=== PATIENT | female | born 1990 | race African-American/Black ===

== ENCOUNTER 2023-10-02 16:07 | Day surgery (SDC) | payer OTHER, SELFPAY ==
[2023-10-02] VITALS (13 sets, daily range): BP systolic 90–174; BP diastolic 59–107; BMI 33.6; BMI 34.5
[2023-10-02 11:39] LABS: % Basophils 0.5 % (0-2); % Immature Granulocytes 0.3 % (0-0.5); % Lymphocytes 24.2 % (20.5-51.1); % Monocytes 7.1 % (1.7-9.3); % Neutrophils 66.9 % (42.2-75.2); Absolute Eosinophils 0.1 10^3/uL (0-0.7); Absolute Lymphocytes 1.5 10^3/uL (1.2-3.4); Absolute Monocytes 0.4 10^3/uL (0.1-0.6); Absolute Neutrophils 4.2 10^3/uL (1.4-6.5); Hematocrit 39.7 % (37.0-47.0); Hemoglobin 13.3 g/dL (12.0-16.0); Mean Corp Hgb Conc. 33.5 g/dL (33.0-37.0); Mean Corpuscular Hgb 26.7 pg (27.0-31.0); Mean Corpuscular Volume 79.7 fL (81.0-99.0); Nucleated Red Blood Cells % 0 %; Platelet Count 340 10^3/uL (130-400); Red Blood Cell Count 4.98 10^6/uL (4.20-5.40); Red Cell Dist. Width 14.4 % (11.5-14.5); White Blood Cell Count 6.2 10^3/uL (4.8-10.8)
[2023-10-02 11:57] LABS: HCG, Serum Qualitative Screen Negative
[2023-10-02 12:06] LABS: ALT (SGPT) 66 U/L (0-35); AST (SGOT) 50 U/L (14-36); Albumin 4.7 g/dl (3.5-5.0); Alkaline Phosphatase 199 U/L (38-126); Blood Urea Nitrogen 15 mg/dl (7-17); Carbon Dioxide 21 mmol/L (22-30); Chloride 103 mmol/L (98-107); Glucose 90 mg/dl (70-99); Lipase 68 U/L (23-300); Potassium 3.5 mmol/L (3.5-5.1); Sodium 140 mmol/L (135-145); Total Bilirubin 1.7 mg/dl (0.2-1.3); Total Protein 7.5 g/dl (6.3-8.2); eGFR > 60.00
--- NOTE | 2023-10-02 13:22 | ED.GENMED ---
History of Present Illness
<Maddy Mari PA-C - Last Filed: 10/02/23 18:26>
General
Chief Complaint: Abdominal Pain
Source: patient
Exam Limitations: none
Time Seen by Provider: 10/02/23 13:05
Nursing documentation reviewed up to this point in time: agreed with
Travel History
Have you had any contact with someone who has COVID-19?: No
Do you have any symptoms of coronavirus? Fever > 100 degrees, chills, cough, shortness of breath, sore throat, loss of taste or smell, muscle aches, or headache?: No
History of Present Illness
History of Present Illness:
Patient is a 33-year-old female with history gallstones presenting for evaluation of right upper quadrant abdominal pain with associated nausea and vomiting. Symptoms initially started Sunday night 7 PM and have been constant since. She
describes a constant pain in her right upper abdomen with intermittent sharp pains wrapping around to her mid back. She does report some radiation to her right shoulder. Pain is somewhat worse with deep inspiration. Patient does report
intermittent nausea and a few episodes of vomiting. She has had very little appetite. Prior to pain onset Sunday night she did eat a [id number] from [employer]. Patient was seen in our emergency department about 10 months ago where she had an
ultrasound that showed gallstones and gall sludge. She states she would intermittently get discomfort in the right upper abdomen which always quickly.
Patient denies any fever, chills, chest pain, urinary symptoms.
Past History
<Maddy Mari PA-C - Last Filed: 10/02/23 18:26>
Past History
ED Past Medical History: Asthma and Psychiatric
ED Past Surgical History: Gynecological
Social History
Tobacco: Non-smoker
Review of Systems
<Maddy Mari PA-C - Last Filed: 10/02/23 18:26>
Review of Systems
Allergies reviewed?: Yes
All Other Systems: ROS reviewed and negative except as documented in HPI and ROS
Phy Exam
<Maddy Mari PA-C - Last Filed: 10/02/23 18:26>
Physical Exam
Physical Exam:
Vitals: Patient's vital signs are stable. Afebrile
General: Patient is well appearing, no acute distress. Nontoxic appearing
Skin: Warm and dry, no rashes or lesions
Head: Normocephalic, atraumatic
Eyes: Sclera nonicteric. EOMs intact. No nystagmus.
Throat: Protecting airway
Neck: Normal ROM, no cervical spine tenderness, no meningismus. Trachea midline
Cardiac: Regular rate and rhythm, no murmurs. No anterior chest wall tenderness
Pulm: Normal respiratory effort, no wheezes, rales, rhonchi heard on exam.
Abdomen: Abdomen soft. Moderately tender right upper quadrant. Positive Guo sign. No rebound tenderness or guarding. No tenderness at McBurney's point. Nondistended
Extremities: No evidence of cyanosis or edema. Good distal pulses
Neuro: AAOx3. CN II-XII intact. No focal neurologic deficits.
Psychiatric: Normal affect.
Course
<Maddy Mari PA-C - Last Filed: 10/02/23 18:26>
Orders/Labs/Results
Orders:
Orders
10/02/23 11:23
Test Result ONCE
10/02/23 11:28
Complete Blood Count/With Diff Urgent
Comprehensive Metabolic Panel Urgent
HCG, Serum Qualitative Screen Urgent
Lipase Urgent
10/02/23 13:23
0.9% Sodium Chloride 1000 ml [Nss] 1,000 ml IV BOLUS
Ketorolac [Toradol] 15 mg IV NOW STA
US Abdomen Complete/Upper Urgent
Comment: hx gallstones
Reason For Exam: RUQ abdominal pain, nausea/vomiting
10/02/23 13:24
Electrocardiogram (*1) Urgent
Reason for Study: Abdominal Pain
EKG- Treatment ONCE
10/02/23 13:58
Troponin I Urgent
10/02/23 14:52
HYDROmorphone [Dilaudid] 0.5 mg IV NOW STA
Ondansetron Injectable [Zofran] 4 mg IV NOW STA
Piperacillin/Tazo 3.375 Gram [Zosyn] 3.375 gram in 50 ml IV NOW
10/02/23 15:19
Consult Surgery [SURGICAL CONSULT] Urgent
Consulting Provider: Arvaind Perdue
Was physician already notified: Yes
10/02/23 15:45
HYDROmorphone [Dilaudid] 0.25 mg IV PACU-Q5MPRN PRN
HYDROmorphone [Dilaudid] 0.5 mg IV PACU-Q5MPRN PRN
Meperidine [Demerol] 12.5 mg IV PACU-Q5MPRN PRN
Normosol (Mult Electrolytes) [Normosol-R] 1,000 ml IV PER PROTOCOL
Ondansetron Injectable [Zofran] 4 mg IV PACU-ONCEPRN PRN
Prochlorperazine [Compazine] 5 mg IV PACU-ONCEPRN PRN
Notify MD As Directed
Notify physician if: for SDS patients with known or suspected sleep obstructive sleep apnea, monitor in the
PACU.
Notify MD for any apneic/desaturation episodes
O2 Therapy [RESP] Urgent
Titrate/Wean O2 to maintain O2 sat greater than (%): 92
Special Instructions: -Provide supplemental oxygen to achieve O2 sat of 92% or greater.
-After 15 min, may wean O2 and discontinue if patient is able to maintain O2 sat of 92%
or greater during recovery period.
If patient is a discharge home, without oxygen therapy, notify anestheiologist if
unable to maintain O2 SAT of 92% or greater on room air for MD clearance.
10/02/23 15:54
Fentanyl Citrate/Pf [Sublimaze] 100 mcg .ROUTE .STK-MED ONE
Midazolam HCl [Versed] 2 mg .ROUTE .STK-MED ONE
10/02/23 15:55
Lidocaine HCl/Pf [Xylocaine-Mpf 1% Vial] 50 mg .ROUTE .STK-MED ONE
Propofol [Diprivan] 20 ml .ROUTE .STK-MED
Rocuronium [place] [Rocuronium] 50 mg .ROUTE .STK-MED ONE
10/02/23 15:56
Ondansetron Injectable [Zofran] 4 mg .ROUTE .STK-MED ONE
10/02/23 16:11
Bupivacaine Mpf 0.25% [Sensorcaine-Mpf 0.25% Vial] 30 ml .ROUTE .STK-MED ONE
10/02/23 16:20
Admit/Transfer Patient As Directed
Co-Sign Provider:
Level of Care: Inpatient admission
Assign to:: Medical/Surgical
Physician / Group: cherelle
Diagnosis: acute cholecystitis
Reason for Hospitalization: acute cholecystitis
Expected length of stay greater than two midnights?: Yes
ELOS- Estimated Length of Stay in days: 2
I certify the patient meets the requirements for IP care: Yes
Code Status As Directed
Resuscitation Status: Full Code
10/02/23 16:22
Iohexol [Omnipaque] 50 ml .ROUTE .STK-MED ONE
10/02/23 16:50
Glycopyrrolate [Robinul] 0.2 mg .ROUTE .STK-MED ONE
10/02/23 16:57
Fentanyl Citrate/Pf [Sublimaze] 100 mcg .ROUTE .STK-MED ONE
Propofol [Diprivan] 20 ml .ROUTE .STK-MED
10/02/23 17:01
Labetalol HCl [Trandate] 20 mg .ROUTE .STK-MED ONE
10/02/23 17:11
OR Pathology Routine
Pre-Operative Diagnosis: ACUTE CHOLECYSTECTOMY
Post-Operative Diagnosis: SAME
Operative Procedure: LAP CY
Surgeon: GERARDO
Circulating Nurse: SUMAYA
Specimen Type: GALLBLADDER
10/02/23 17:25
Glucagon [GlucaGen] 1 mg .ROUTE .STK-MED ONE
Abnormal Lab Results
10/02/23
11:28
MCV 79.7 L fL
(81.0-99.0)
MCH 26.7 L pg
(27.0-31.0)
Carbon Dioxide 21 L mmol/L
(22-30)
Total Bilirubin 1.7 H mg/dl
(0.2-1.3)
AST 50 H U/L
(14-36)
ALT 66 H U/L
(0-35)
Alkaline Phosphatase 199 H U/L
(38-126)
10/02/23 11:28
10/02/23 11:28
Vital Signs
Initial and Last Documented VS:
Initial Vital Signs
Temp Pulse Resp BP Pulse Ox
98.9 F 86 16 171/107 99
10/02/23 11:21 10/02/23 11:21 10/02/23 11:21 10/02/23 11:21 10/02/23 11:21
Last Documented Vital Signs
Temp Pulse Resp BP Pulse Ox
98.5 F 82 16 156/98 98
10/02/23 15:21 10/02/23 15:21 10/02/23 15:21 10/02/23 15:21 10/02/23 15:21
<Jigar Ross MD - Last Filed: 10/02/23 13:46>
Orders/Labs/Results
Orders:
Orders
10/02/23 11:23
Test Result ONCE
10/02/23 11:28
Complete Blood Count/With Diff Urgent
Comprehensive Metabolic Panel Urgent
HCG, Serum Qualitative Screen Urgent
Lipase Urgent
10/02/23 13:23
0.9% Sodium Chloride 1000 ml [Nss] 1,000 ml IV BOLUS
Ketorolac [Toradol] 15 mg IV NOW STA
US Abdomen Complete/Upper Urgent
Comment: hx gallstones
Reason For Exam: RUQ abdominal pain, nausea/vomiting
10/02/23 13:24
Electrocardiogram (*1) Urgent
Reason for Study: Abdominal Pain
EKG- Treatment ONCE
10/02/23 13:58
Troponin I Urgent
10/02/23 14:52
HYDROmorphone [Dilaudid] 0.5 mg IV NOW STA
Ondansetron Injectable [Zofran] 4 mg IV NOW STA
Piperacillin/Tazo 3.375 Gram [Zosyn] 3.375 gram in 50 ml IV NOW
10/02/23 15:19
Consult Surgery [SURGICAL CONSULT] Urgent
Consulting Provider: Aravind Perdue
Was physician already notified: Yes
10/02/23 15:45
HYDROmorphone [Dilaudid] 0.25 mg IV PACU-Q5MPRN PRN
HYDROmorphone [Dilaudid] 0.5 mg IV PACU-Q5MPRN PRN
Meperidine [Demerol] 12.5 mg IV PACU-Q5MPRN PRN
Normosol (Mult Electrolytes) [Normosol-R] 1,000 ml IV PER PROTOCOL
Ondansetron Injectable [Zofran] 4 mg IV PACU-ONCEPRN PRN
Prochlorperazine [Compazine] 5 mg IV PACU-ONCEPRN PRN
Notify MD As Directed
Notify physician if: for SDS patients with known or suspected sleep obstructive sleep apnea, monitor in the
PACU.
Notify MD for any apneic/desaturation episodes
O2 Therapy [RESP] Urgent
Titrate/Wean O2 to maintain O2 sat greater than (%): 92
Special Instructions: -Provide supplemental oxygen to achieve O2 sat of 92% or greater.
-After 15 min, may wean O2 and discontinue if patient is able to maintain O2 sat of 92%
or greater during recovery period.
If patient is a discharge home, without oxygen therapy, notify anestheiologist if
unable to maintain O2 SAT of 92% or greater on room air for MD clearance.
10/02/23 15:54
Fentanyl Citrate/Pf [Sublimaze] 100 mcg .ROUTE .STK-MED ONE
Midazolam HCl [Versed] 2 mg .ROUTE .STK-MED ONE
10/02/23 15:55
Lidocaine HCl/Pf [Xylocaine-Mpf 1% Vial] 50 mg .ROUTE .STK-MED ONE
Propofol [Diprivan] 20 ml .ROUTE .STK-MED
Rocuronium [place] [Rocuronium] 50 mg .ROUTE .STK-MED ONE
10/02/23 15:56
Ondansetron Injectable [Zofran] 4 mg .ROUTE .STK-MED ONE
10/02/23 16:11
Bupivacaine Mpf 0.25% [Sensorcaine-Mpf 0.25% Vial] 30 ml .ROUTE .STK-MED ONE
10/02/23 16:20
Admit/Transfer Patient As Directed
Co-Sign Provider:
Level of Care: Inpatient admission
Assign to:: Medical/Surgical
Physician / Group: cherelle
Diagnosis: acute cholecystitis
Reason for Hospitalization: acute cholecystitis
Expected length of stay greater than two midnights?: Yes
ELOS- Estimated Length of Stay in days: 2
I certify the patient meets the requirements for IP care: Yes
Code Status As Directed
Resuscitation Status: Full Code
10/02/23 16:22
Iohexol [Omnipaque] 50 ml .ROUTE .STK-MED ONE
10/02/23 16:50
Glycopyrrolate [Robinul] 0.2 mg .ROUTE .STK-MED ONE
10/02/23 16:57
Fentanyl Citrate/Pf [Sublimaze] 100 mcg .ROUTE .STK-MED ONE
Propofol [Diprivan] 20 ml .ROUTE .STK-MED
10/02/23 17:01
Labetalol HCl [Trandate] 20 mg .ROUTE .STK-MED ONE
10/02/23 17:11
OR Pathology Routine
Pre-Operative Diagnosis: ACUTE CHOLECYSTECTOMY
Post-Operative Diagnosis: SAME
Operative Procedure: LAP CY
Surgeon: GERARDO
Circulating Nurse: SUMAYA
Specimen Type: GALLBLADDER
10/02/23 17:25
Glucagon [GlucaGen] 1 mg .ROUTE .STK-MED ONE
Abnormal Lab Results
10/02/23
11:28
MCV 79.7 L fL
(81.0-99.0)
MCH 26.7 L pg
(27.0-31.0)
Carbon Dioxide 21 L mmol/L
(22-30)
Total Bilirubin 1.7 H mg/dl
(0.2-1.3)
AST 50 H U/L
(14-36)
ALT 66 H U/L
(0-35)
Alkaline Phosphatase 199 H U/L
(38-126)
10/02/23 11:28
10/02/23 11:28
Vital Signs
Initial and Last Documented VS:
Initial Vital Signs
Temp Pulse Resp BP Pulse Ox
98.9 F 86 16 171/107 99
10/02/23 11:21 10/02/23 11:21 10/02/23 11:21 10/02/23 11:21 10/02/23 11:21
Last Documented Vital Signs
Temp Pulse Resp BP Pulse Ox
98.5 F 82 16 156/98 98
10/02/23 15:21 10/02/23 15:21 10/02/23 15:21 10/02/23 15:21 10/02/23 15:21
<Maddy Mari PA-C - Last Filed: 10/02/23 18:26>
MDM/Problems Addressed
Differential Diagnosis Includes:
Not limited to: Biliary colic, cholecystitis, choledocholithiasis, cholangitis, pancreatitis, appendicitis, muscle strain, doubt PE or ACS
MDM/Problems Addressed:
33-year-old female with known history of gallstones presenting for evaluation of right upper quadrant pain that has been constant over the past 3 days. Some nausea and vomiting. No fevers or chills. Patient is hypertensive, otherwise vital signs
are stable. She is afebrile. Exam as above. She is moderately tender in right upper quadrant with a positive Guo sign. Abdomen is soft, nondistended. No tenderness at McBurney's point. With known history of gallstones�symptoms very
suspicious for biliary disease. Labs obtained in triage noted. White count is normal at 6.2. She does have an elevation in her bilirubin to 1.7 with some mild elevations of AST, ALT, alkaline phosphatase. Will check ultrasound of abdomen. EKG
obtained which showed some nonspecific ST changes will get troponin for completeness although seriously doubt cardiac etiology. IV fluids, Toradol for pain. Patient declines Zofran at this time.
Ultrasound shows evidence of acute cholecystitis with some mild dilation of CBD. discussed with general surgery who evaluated patient at bedside. Plan for OR tonight for cholecystectomy. Started patient on Zosyn, Dilaudid for pain. Discussed
with patient. All questions answered. Patient admitted to hospitalist service given potential need for ERCP. Hospitalist aware.
Chronic conditions affecting care:
History gallstones
Acute Exacerbation and/or Progression of Chronic Illness:
Acute cholecystitis
<Maddy Mari PA-C - Last Filed: 10/02/23 18:26>
*Radiology
Radiology exam reviewed: preliminary read by ED provider and radiology read reviewed
*Pulse Oximetry
Patient hypoxic: no
*EKG
Interpreted by ED Provider?: Yes
EKG Intrepretation Date: 10/02/23
Interpretation: abnormal
Comparison EKG: no comparison EKG present
Heart Rate: 108
Rate: tachycardiac
Rhythm: sinus
Interval: normal interval
Ischemia: non-specific ST changes
*E Commerce Solution Architect Interpretation
Rate: E Commerce Solution Architect- N/A
*Critical Care Note
Total Time (30-74mins, 75-104mins- exclusive of procedures): Not Applicable
Data Reviewed
Review of Other/Old Records Reveals: Labs and Radiology Studies
Source: previous hospital records
<Maddy Mari PA-C - Last Filed: 10/02/23 18:26>
Patient Management
Discussion with other providers: Merchandise Processor (General surgery)
ED Attending Note
<Maddy Mari PA-C - Last Filed: 10/02/23 18:26>
-
Portions of this chart may have been created with voice recognition software.� Occasional wrong word or��sound alike� substitutions may have occurred due to the inherent limitations of voice recognition software.
<Jigar Ross MD - Last Filed: 10/02/23 13:46>
ED Attending Note
Patient seen and examined by attending physician: Yes
I performed the substantive portion of visit, reviewed & personally made and approve the management plan that is documented in note by myself or RK.: Yes
ED Attending Note:
33-year-old female complaining of right upper quadrant pain with some radiation to the back for 3 days. Relatively constant. Some nausea or vomiting. No fever. History of same intermittently for the last 8 months. Known gallstones.
On exam patient is nontoxic in no distress. Mild tenderness right upper quadrant. No rebound or guarding no mass or hernia. She is in no respiratory distress. She is warm and dry and perfusing well.
Known gallstones by previous ultrasound. Highly doubt cardiac. EKG has nonspecific changes however she did have many of these before. Troponin will be done for completeness. Ultrasound pending. LFTs are elevated mildly. Very suspicious of
biliary disease.
Discharge Plan
Departure
Patient Disposition: Admit
Date of Disposition: 10/02/23
Time of Disposition: 16:01
Presentation/result/management discussed w/ accepting MD/DO: Hospitalist
Condition: Good
Discharge Problem:
Acute cholecystitis
Interventions
Interventions:
*Risk Screen - Suicide Last Done: 10/02/23 13:35
*General Assessment Last Done: 10/02/23 13:35
*Neglect/Abuse Screening Last Done: 10/02/23 13:35
ED- Fall Risk Assessment Last Done: 10/02/23 13:35
*ED COVID-19 Vaccine History Last Done: 10/02/23 11:21
*Nursing Disposition Last Done: 10/02/23 16:13
TS-Kgxrzz-Gdjlfcbvhe Assessment Last Done: 10/02/23 13:35
Discharge Date and Time
Discharge Date/Time: 10/02/23 16:19
[2023-10-02] MEDS: NSS 1000 IV ×2 (13:38→20:51)
[2023-10-02] MEDS: TORADOL 15 MG IV (13:38)
[2023-10-02 14:41] LABS: Troponin I 0.013 ng/ml
[2023-10-02] MEDS: ZOSYN 50 IV ×2 (14:59→20:59)
[2023-10-02] MEDS: ZOFRAN 4 MG IV ×2 (14:59→22:23)
[2023-10-02] MEDS: DILAUDID 0.5 MG IV ×5 (14:59→20:52)
--- NOTE | 2023-10-02 15:34 | CON.GS ---
Medical History
-
Chief Complaint: Abdominal pain
History of Present Illness:
Patient is a 33 yo F with a PMH of obesity, anxiety, HTN, asthma, and known cholelithiasis. Ms. Weinberg presents to the ER with approximately 3 days of RUQ abdominal pain. She states that her symptoms began on Sunday evening after having a fish
fillet at [employer] and some [employer]. She reports a intense sharp pain in her epigastrium and RUQ radiating to her back. Associated nausea and self-induced vomiting. No fevers or chills. She denies any jaundice, pale stools, or tea colored
urine. She has had prior attacks most recently 2 months ago, reporting approximately 7 more mild episodes of discomfort. She has been previously told that she has gallstones.
Of note, she has a reported history of a heart murmur. She was previously seen by Dr. Lyles from cardiology on 03/01/2023. She had a TTE in 04/2023 which was unremarkable.
Past Medical History
Past Medical History: HTN, Psychiatric (Anxiety) and Other (Obesity)
Past Surgical History: None
Social History
Tobacco: Non-Smoker
Alcohol: Occasional
Drug: Marijuana (Occasional)
Living: With Family
Employment: Not Employed
Family History
Family History: Reviewed & Noncontributory
Allergies / Home Medications
Allergy/AdvReac Type Severity Reaction Status Date / Time
No Known Allergies Allergy Verified 10/02/23 11:23
�Medication �Instructions �Recorded �Confirmed �Type
No Meds [No Current Medications] 10/02/23 10/02/23 History
Review of Systems
-
A 10 point review of systems was completed, and was negative except as per HPI.
Physical Exam
Vital Signs
Temp Pulse Resp BP Pulse Ox
98.5 F 82 16 156/98 98
10/02/23 15:21 10/02/23 15:21 10/02/23 15:21 10/02/23 15:21 10/02/23 15:21
10/01/23 10/02/23 10/03/23
06:59 06:59 06:59
Actual Weight 109.1 kg
Body Mass Index (BMI) 33.6
Lab Results
10/02/23 11:28
10/02/23 11:28
WBC 6.2 10^3/uL (4.8-10.8) 10/02/23 11:28
Hgb 13.3 g/dL (12.0-16.0) 10/02/23 11:28
Hct 39.7 % (37.0-47.0) 10/02/23 11:28
Plt Count 340 10^3/uL (130-400) 10/02/23 11:28
Abs Immat Gran (auto) 0.0 10^3/uL (0-0.05) 10/02/23 11:28
Neutrophils % 66.9 % (42.2-75.2) 10/02/23 11:28
Physical Exam
General: Well Developed, Well Nourished and No Apparent Distress
HEENT: Normocephalic and Anicteric
Respiratory: Non Labored Respirations
Cardiac: Regular Rhythm
GI: Soft, Non Distended, Tender (Mild RUQ), Obese and Other (Nonperitoneal)
Musculoskeletal: No Edema
Skin: Warm and Dry
Neuro: Nonfocal/Grossly Intact
Data Reviewed
-
Ultrasound: Image Personally Visualized and interpreted and Report Reviewed by me
Labs: Labs Reviewed by me
Old Records: Reviewed
Assessment / Plan
-
Patient is a 33 yo F p/w acute cholecystitis versus choledocholithiasis
The natural history and pathophysiology of biliary and stone disease was briefly discussed. Anatomy was reviewed. Options for management including further workup with an MRI versus proceeding with cholecystectomy and cholangiogram were considered
and discussed. The pros and cons of both approaches was discussed. All are has stated they are that they are available to proceed with cholecystectomy and as such we will plan to proceed with operative intervention upfront in the hopes of saving
her an MRI and potentially clearing any choledocholithiasis.
Plan for a laparoscopic cholecystectomy with cholangiogram. The procedure itself, as well as the risks, benefits, and alternatives was discussed. Specifically, we discussed the risks of bleeding, infection, injury to surrounding structures (bowel,
bile ducts), CBD injury, need for open procedure. Typical post procedure recovery including pain management and the 10 to 20% risk of fluctuations in GI function was discussed. All questions answered. Consent signed.
-- Laparoscopic cholecystectomy possible cholangiogram
-- NPO, IVF
-- Pain control: Tylenol and IV Dilaudid PRN
-- Zosyn
-- Admit to Medicine
--- NOTE | 2023-10-02 15:45 | W.SUR.PREOP ---
Pre-Operative Surgical Note
-
I have examined this patient prior to the performance of the scheduled procedure.
The patient's condition is unchanged from the time of the current History and
Physical and the patient is able to undergo the scheduled procedure.
--- NOTE | 2023-10-02 16:04 | EDRN ---
the OR nurse called this RN and this RN gave verbal report
--- NOTE | 2023-10-02 16:23 | HPS.HSE ---
Family Physician
-
Family Physician: Milena Harvey MD
Chief Complaint
-
abdominal pain
History of Present Illness
33-year-old female past medical history of cholelithiasis, hypertension, asthma, anxiety, obesity, presenting with 3 days of right upper quadrant abdominal pain associated with nausea and vomiting. Symptoms started Sunday night after eating [employer] from [employer]. Pain is also in the epigastric region and radiates to her back and chest. He did have some nausea and self-induced vomiting once. No fevers or chills. No diarrhea. Denies any pale stools or dark urine.
She has had episodes of right upper quadrant pain previously and was told that she had gallstones before which is usually triggered by dairy products. Since stopping dairy products she has not had an episode in the past few months.
She does smoke marijuana sometimes. Denies nicotine use. She had alcohol 1 time this month.
Medical History
Past Medical History
Past Medical History: Reports Other (cholelithiasis, hypertension, asthma, anxiety, obesity,)
Past Surgical History: Reports None
Social History
Tobacco: Non-smoker
Alcohol: Occasional
Drug: Marijuana
Family History
Family History: Not pertinent
Allergies / Home Medications
Allergies reflects when Allergies were last updated in [facility].
Home Medications with original date entered in [facility]
Allergy/Medication List:
Allergies
Allergy/AdvReac Type Severity Reaction Status Date / Time
No Known Allergies Allergy Verified 10/02/23 11:23
Home Medications
No Meds [No Current Medications] 10/02/23
Review of Systems
-
History Source: Patient
A 12 point ROS was completed and negative except as noted: Yes
Constitutional: Reports No Symptoms
EENT: Reports No Symptoms
Respiratory: Reports No Symptoms
Cardiac: Reports No Symptoms
Abdomen/GI: Reports See HPI
: Reports No Symptoms
Musculoskeletal: Reports No Symptoms
Skin: Reports No Symptoms
Neurological: Reports No Symptoms
Endocrine: Reports No Symptoms
Hematologic/Lymphatic: Reports No Symptoms
Psych: Reports No Symptoms
Physical Exam
Vital Signs
Vital Signs
Temp Pulse Resp BP Pulse Ox
98.5 F 82 16 156/98 98
10/02/23 15:21 10/02/23 15:21 10/02/23 15:21 10/02/23 15:21 10/02/23 15:21
Physical Exam
General: Well Developed, Well Nourished and No Apparent Distress
HEENT: NormoCephalic, Moist mucous membranes and Atraumatic
Respiratory: Clear
Cardiac: S1/S2 and Regular Rhythm; No Murmur or Rub
GI: Soft, Non Distended, Normal Bowel Sounds and Tender (RUQ ); No Organomegaly
Rectal: Deferred by Provider
Musculoskeletal: No Clubbing, No Cyanosis and No Edema
Skin: No Rash
Neuro: Nonfocal/grossly intact
Laboratory Results
-
10/02/23 11:28
10/02/23 11:28
Laboratory Results
Total Bilirubin 1.7 mg/dl (0.2-1.3) H 10/02/23 11:28
AST 50 U/L (14-36) H 10/02/23 11:28
ALT 66 U/L (0-35) H 10/02/23 11:28
Alkaline Phosphatase 199 U/L (38-126) H 10/02/23 11:28
Troponin I 0.013 ng/ml 10/02/23 13:58
Lipase 68 U/L (23-300) 10/02/23 11:28
Data Reviewed
-
Lab Data: Labs Reviewed by me
Old Records: Reviewed
Impression/Plan
-
IMPRESSION:
PLAN:
# Acute cholecystitis
# Possible choledocholithiasis
# History of cholelithiasis
-Abdominal ultrasound shows dilated gallbladder containing multiple gallstones/gallbladder sludge. There is gallbladder wall edema and positive sonographic Guo sign. Mild common bile duct dilation and dilation of pancreatic duct.
-N.p.o.
-IV fluids
-Zosyn
-General surgery to take to OR
-May require further MRCP/GI consult depending on intraoperative findings
Occasional marijuana use
Essential hypertension
Asthma
Anxiety
Obesity
Full code
DVT prophylaxis�SCDs
N.p.o.
--- NOTE | 2023-10-02 18:12 | W.IMMPOSTOP ---
Addendum entered and electronically signed by Aravind Perdue MD 10/02/23 18:20:
[facility]# [id number]
Original Note:
Surgical Immed Post Op Note
-
Primary Surgeon: Iron
Assisting Surgeon: None
Pre-op Diagnosis: Choledocholithiasis
Post-op Diagnosis: Choledocholithiasis
Procedure Performed: Laparoscopic cholecystectomy with IOC
Anesthesia Type: General
Specimen / Cultures:
1. Gallbladder
Estimated Blood Loss: 7 cc
Complications: None
Operative Findings:
1. Distended GB, mild wall thickening, no edema, dilated cystic and CBD
2. Critical view of safety
3. IOC with stones removed through ductotomy, dilated CBD, no stones appreciated within CBD
[2023-10-02] MEDS: NORMOSOL-R 1000 IV (19:58)
[2023-10-02] MEDS: TYLENOL 650 MG PO (20:51)
[2023-10-03] MEDS: TYLENOL PO
[2023-10-03] MEDS: DILAUDID 0.5 MG IV ×3 (01:18→16:42)
[2023-10-03 03:00] VITALS: BP 135/80
[2023-10-03] MEDS: TYLENOL 650 MG PO ×4 (03:20→16:43)
[2023-10-03] MEDS: ZOSYN 50 IV ×3 (03:20→16:43)
[2023-10-03 06:25] LABS: % Basophils 0.2 % (0-2); % Immature Granulocytes 0.2 % (0-0.5); % Lymphocytes 22.3 % (20.5-51.1); % Monocytes 9.8 % (1.7-9.3); % Neutrophils 67.5 % (42.2-75.2); Absolute Lymphocytes 2.1 10^3/uL (1.2-3.4); Absolute Monocytes 0.9 10^3/uL (0.1-0.6); Absolute Neutrophils 6.3 10^3/uL (1.4-6.5); Hematocrit 34.1 % (37.0-47.0); Hemoglobin 11.1 g/dL (12.0-16.0); Mean Corp Hgb Conc. 32.6 g/dL (33.0-37.0); Mean Corpuscular Hgb 26.4 pg (27.0-31.0); Mean Corpuscular Volume 81.2 fL (81.0-99.0); Mean Platelet Volume 10.6 fL (7.4-10.4); Nucleated Red Blood Cells % 0 %; Platelet Count 304 10^3/uL (130-400); Red Cell Dist. Width 14.4 % (11.5-14.5); White Blood Cell Count 9.3 10^3/uL (4.8-10.8)
[2023-10-03 07:00] VITALS: BP 148/83
[2023-10-03 07:03] LABS: ALT (SGPT) 74 U/L (0-35); AST (SGOT) 85 U/L (14-36); Albumin 3.7 g/dl (3.5-5.0); Alkaline Phosphatase 204 U/L (38-126); Blood Urea Nitrogen 8 mg/dl (7-17); Calcium 9.1 mg/dl (8.4-10.2); Carbon Dioxide 22 mmol/L (22-30); Chloride 105 mmol/L (98-107); Estimated Creatinine Clearance > 125 ml/min; Glucose 74 mg/dl (70-99); Potassium 4.4 mmol/L (3.5-5.1); Sodium 137 mmol/L (135-145); Total Bilirubin 1.1 mg/dl (0.2-1.3); Total Protein 6.2 g/dl (6.3-8.2); eGFR > 60.00
[2023-10-03] MEDS: NSS 1000 IV ×2 (07:04→09:34)
[2023-10-03] MEDS: ZOFRAN 4 MG IV (07:23)
--- NOTE | 2023-10-03 09:19 | W.PN.GS2 ---
Today's Communication / Plan
-
DC
Assessment / Plan
-
33F POD1 s/p lap devorah with IOC
Doing well post-op
OK for DC home
Subjective Data
-
Date of Service: October 03, 2023
AFVSS, mabulating, voiding, dayanara PO, pain controlled
Objective Data
-
Intake and Output
10/02/23 10/03/23 10/04/23
06:59 06:59 06:59
Intake Total 480 / 480
Balance 480 / 480
Intake:
Oral fluids 480 / 480
Other:
Number of approximated MODERATE 2
amounts of urine
Vital Signs
Temp Pulse Resp BP Pulse Ox
98.3 F 62 18 148/83 98
10/03/23 07:00 10/03/23 07:00 10/03/23 07:00 10/03/23 07:00 10/03/23 07:00
Lab Results
10/03/23 05:32
10/03/23 05:32
Calcium 9.1 mg/dl (8.4-10.2) 10/03/23 05:32
Total Bilirubin 1.1 mg/dl (0.2-1.3) 10/03/23 05:32
AST 85 U/L (14-36) H 10/03/23 05:32
ALT 74 U/L (0-35) H 10/03/23 05:32
Alkaline Phosphatase 204 U/L (38-126) H 10/03/23 05:32
Total Protein 6.2 g/dl (6.3-8.2) L 10/03/23 05:32
Albumin 3.7 g/dl (3.5-5.0) 10/03/23 05:32
Physical Exam
-
Gen: NAD
Abd: soft, approp ttp, incisions cdi
--- NOTE | 2023-10-03 09:21 | W.DS.TRANS ---
DC Summary - [employer]
-
Discharge Instructions:
Discharge Diagnosis/Procedures Laparoscopic cholecystectomy with intraoperative
cholangiogram
Diet Regular,Low Fat
Additional Diets Issues with bloating or diarrhea follow a low-
fat diet
Activity No strenuous activity
Additional Activity No heavy lifting (>20 lbs) or strenuous
activities for 2 weeks postoperatively
Driving Restrictions No driving if too sore or taking narcotics
Bathing Restrictions OK to Shower
Wound Care Keep incisions clean and dry. Glue will flake
off in 2 to 3 weeks. Stitches will dissolve.
Instructions:
Stand-Alone Forms:
Changes to Home Medications: No
Discharge Medications:
DC Medications w/original date entered in [employer]
No Meds [No Current Medications] 10/02/23
Home Medication Changes
Pending Results: No
[2023-10-03] MEDS: ROXICODONE 5 MG PO (09:34)
[2023-10-03 11:00] VITALS: BP 139/75
[2023-10-03 15:00] VITALS: BP 159/88
--- NOTE | 2023-10-03 15:10 | CM ---
Patient seen bedside, initial assessment completed. Patient resides with family in a multiple story home. Patient denies DME or SNF, reports VN in the past. Patient confirms PCP Milena Harvey, pharmacy [facility]. Patient reports she will
call her mom for transportation home. Patient reprots no needs to CM at this time. CM will continue to follow for discharge planning needs.
Plan; home no needs.
--- NOTE | 2023-10-03 17:21 | PTCARENOTE ---
Assumed care of pt from previous nurse. Pt provided dilaudid for abdominal pain, walk taken to pass gas, education on coughing pillow provided. Pt call perez is within reach, pt rings constantino. reports relief with pain medication. will cont to monitor.
for dc this evening.
[2023-10-03] MEDS: TUMS 1 TABLET PO (18:19)
[2023-10-03] MEDS: ProAIR HFA INHALER 2 PUFF INH (18:23)
[2023-10-03] MEDS: NSS IV (18:23)
--- NOTE | 2023-10-03 19:28 | PTCARENOTE ---
Pt escorted via w/c to mothers car waiting. All belongings from room with pt.
== END 2023-10-03 19:12 | disposition home or self-care (01) ==
LOC: PACU 16:07
PROVIDERS: Emergency Medicine; Hospitalist; Physician Assistant; ATTENDING PHYSICIAN Surgery; EMERGENCY PHYSICIAN Emergency Medicine; FAMILY PHYSICIAN Student in an Organized Health Care Education/Training Program
DX: K80.10 Calculus of gallbladder with chronic cholecystitis without obstruction (principal); K80.50 Calculus of bile duct without cholangitis or cholecystitis without obstruction
CPT/HCPCS: 47563; 88304; 74300; 76000; 76700; 80053; 83690; 84484; 84703; 85025; 93005; 94640; 96361; 96365; 96375; 99285; J1610

== ENCOUNTER 2024-08-05 09:54 | Emergency (ER) | payer OTHER, SELFPAY ==
[2024-08-05 10:02] VITALS: BP 190/110
--- NOTE | 2024-08-05 10:29 | ED.MUSCINJ ---
HPI-Injury
General
Chief Complaint: Musculo-Skeletal Complaint
Source: patient
Exam Limitations: none
Time Seen by Provider: 08/05/24 10:26
Nursing documentation reviewed up to this point in time: agreed with
History of Present Illness-Injury
Initial Injury comments:
Gradually increasing left knee pain after feeling sudden pain in the knee while walking up 3 flights of steps 4 days ago. She has been able to ambulate, certain ways she turns her leg elicits pain. She has been wearing a Lance Copper knee elastic
support with some relief.
Past History
Past History
ED Past Medical History: Asthma and Psychiatric
ED Past Surgical History: Gynecological
Social History
Tobacco: Non-smoker
Alcohol: Occasional
Personal: Single
Living: with family
Employment: Not employed
Review of Systems
Review of Systems
Allergies reviewed?: Yes
All Other Systems: ROS reviewed and negative except as documented in HPI and ROS
Musculoskeletal: Reports other (left knee pain)
Musculoskeletal Injury Exam
Musculoskeletal Injury Exam
Left Knee:
Pain with Movement?: Mild (She can flex the knee fully and straighten it fully, she gets significant pain with certain movements. She denies the knee feeling unstable like it will give out on her.)
Tender to palpation?: Mild
Soft tissue swelling?: Mild
Joint effusion?: Mild (Suprapatellar effusion)
Strain- Sprain- Tear (Connective tissue injury)?: Other (Concern for torn meniscus)
Crepitus with movement?: No
Joint instability?: No
Malalignment/deformity?: No
Range of motion: Full
Distal skin color and temperature: normal-warm & good color
Capillary Refill: normal
Normal distal neurovascular exam?: Yes
Phy Exam
Physical Exam
Physical Exam:
PHYSICAL EXAMINATION:
General: no apparent distress, not acutely ill
Neuro: alert and oriented.
Psychiatric: well kept. interactive and cooperative
Musculoskeletal: Moves with ease
Skin: Warm, normal
Injury Course
Orders/Labs/Results
Orders:
Orders
08/05/24 10:06
Knee, Left 4 or More Views [CR Knee - Left 4 Or More View*] Urgent
Comment:
Reason For Exam: knee gave out walking up steps + swelling
MDM/Problems Addressed
Differential Diagnosis Includes:
Sprain, torn meniscus, effusion
MDM/Problems Addressed:
Gradually increasing left knee pain after feeling sudden pain in the knee while walking up 3 flights of steps 4 days ago. She has been able to ambulate, certain ways she turns her leg elicits pain. She has been wearing a Lance Copper knee elastic
support with some relief.
Knee x-ray initially read by this examiner: There is a small suprapatellar effusion, no bony abnormality.
Patient is wearing her elastic knee support, she is out of bed and ambulating with mild limp. She states the knee feels stable and does not feel like it will give out. She states she gets pain with certain twisting movements of the leg.
Referred to orthopedics.
*Critical Care Note
Total Time (30-74mins, 75-104mins- exclusive of procedures): Not Applicable
ED Attending Note
-
Portions of this chart may have been created with voice recognition software.� Occasional wrong word or��sound alike� substitutions may have occurred due to the inherent limitations of voice recognition software.
Discharge Plan
Departure
Patient Disposition: Home (Routine Discharge)
Date of Disposition: 08/05/24
Time of Disposition: 11:23
Patient with high blood pressure during this ER visit?: No
Condition: Good
Discharge Problem:
Soft tissue injury of left knee
Instructions: Knee Sprain (DC), Meniscal Tear (DC), Using Cold for Pain
Prescriptions:
New
ibuprofen 600 mg tablet
600 mg PO Q8H PRN (Reason: Pain) Qty: 30 0RF
No Action
oxycodone 5 mg tablet
5 - 10 mg PO Q4HPRN PRN (Reason: moderate to severe pain) Qty: 20 0RF
Referrals:
Milena Harvey MD [Family Provider] -
Levar Guadalupe MD [Active] - Next open appointment
Activity Restrictions/Additional Instructions:
As we discussed, wear your knee brace for support and comfort.
Ibuprofen 600 mg, with food, every 6 hours as needed for pain.
Cold compress to the knee 20 minutes off and on is much as you can over the next 2 days
Call the orthopedic doctors office and make next available appointment as you may need further imaging if not much improved in the next 2 weeks
Interventions
Interventions:
*Risk Screen - Suicide Last Done: 08/05/24 10:02
*Neglect/Abuse Screening Last Done: 08/05/24 10:02
*Nursing Disposition Last Done: 08/05/24 11:33
ED-Musculoskeletal Assessment Last Done: 08/05/24 11:03
Discharge Date and Time
Discharge Date/Time: 08/05/24 11:34
Print Language: PASHTO
== END 2024-08-05 11:34 | disposition home or self-care (01) ==
LOC: EMR 09:54
PROVIDERS: EMERGENCY PHYSICIAN Emergency Medicine; FAMILY PHYSICIAN Student in an Organized Health Care Education/Training Program
DX: S89.92XA Unspecified injury of left lower leg, initial encounter (principal); X50.1XXA Overexertion from prolonged static or awkward postures, initial encounter
CPT/HCPCS: 99283; 73564